=== PATIENT | female | born 1960 | race African-American/Black ===

== ENCOUNTER 2018-09-24 10:46 | Inpatient (IN) | payer OTHER ==
[2018-09-24 12:42] VITALS: BMI 42.7
--- NOTE | 2018-09-24 12:54 | HP ---
CIWA Score Nausea/Vomitin-No Nausea/No Vomiting Muscle Tremors: 1-None Visible, but [place] Anxiety: 0-No Anxiety, at Ease Agitation: 0-Normal Activity Paroxysmal Sweats: 1-Minimal Palms Moist Orientation: 1-Uncertain about Date Tacttile Disturbances: 1-Very Mild Itch/Numbness Auditory Disturbances: 0-None Visual Disturbances: 0-None Headache: 0-None Present CIWA-Ar Total Score: 4 - Admission Criteria OASAS Guidelines: Admission for Medically Managed Detox: Requires at least one of the followin. CIWA greater than 12 2. Seizures within the past 24 hours 3. Delirium tremens within the past 24 hours 4. Hallucinations within the past 24 hours 5. Acute intervention needed for co occurring medical disorder 6. Acute intervention needed for co occurring psychiatric disorder 7. Severe withdrawal that cannot be handled at a lower level of care (continued vomiting, continued diarrhea, abnormal vital signs) requiring intravenous medication and/or fluids 8. Admission ROS [facility] - HPI Allergies/Adverse Reactions: Allergies Allergy/AdvReac Type Severity Reaction Status Date / Time Sulfa (Sulfonamide Allergy Verified 09/24/18 12:16 Antibiotics) History of Present Illness: pt here requesting detox from cocaine use , reports 200-300 / day every other day denies IVDU, reports use x 30 years , denies sobriety since, this is the pt' s first tx episode. cannabis - every other day tobacco : 7-8 cigs/ day etoh : 1/2 pint - 1 pint every 2 days , reports tremors if not drinking , reports starts drinking around 10-11 am " whenever I get up " , denies w/d seizures, blackouts except one time " years ago " , denies falls while intoxicated, denies falls . PMHX : htn PSHX : r ankle frx 7 years ago w/ ORIF / hardware in place PSych : denies Meds : anti-htn Nifedipine , aspirin 81 mg Exam Limitations: No Limitations - Ebola screening Have you traveled outside of the country in the last 21 days: No Have you had contact with anyone from an Ebola affected area: No - Review of Systems Constitutional: See HPI EENT: reports: See HPI (glasses bifocal) Respiratory: reports: No Symptoms reported Cardiac: reports: No Symptoms Reported GI: reports: See HPI : reports: No Symptoms Reported Musculoskeletal: reports: No Symptoms Reported Integumentary: reports: No Symptoms Reported Neuro: reports: No Symptoms reported Endocrine: reports: No Symptoms Reported Psychiatric: reports: Orientated x3 Patient History - Smoking Cessation Smoking history: Current every day smoker Have you smoked in the past 12 months: Yes Hx Chewing Tobacco Use: No Initiated information on smoking cessation: No - Substances abused Alcohol Substance route: Oral Frequency: Daily Amount used: 1/2 FIFTH Age of first use: 18 Date of last use: 09/23/18 Cocaine Substance route: Smoking Frequency: 3-6 times per week Amount used: $200 Age of first use: 21 Date of last use: 09/23/18 Family Disease History - Family Disease History Family History: Denies Admission Physical Exam [facility] - Vital Signs Vital Signs: Vital Signs - 24 hr 09/24/18 09/24/18 12:03 12:40 Temperature 98.0 F 98.0 F Pulse Rate 95 H 95 H Respiratory 18 18 Rate Blood Pressure 162/83 162/83 - Physical General Appearance: Yes: Mild Distress HEENTM: Yes: EOMI, Hearing grossly Normal, Normocephalic, Normal Voice, Other ( upper dentures) Respiratory: Yes: Chest Non-Tender, Lungs Clear, Normal Breath Sounds Neck: Yes: No masses,lesions,Nodules, Trachea in good position Cardiology: Yes: Regular Rhythm, Regular Rate, S1, S2, Tachycardia Abdominal: Yes: Non Tender, Soft, Protuberent Genitourinary: Yes: Within Normal Limits Back: Yes: Normal Inspection Musculoskeletal: Yes: full range of Motion Extremities: Yes: Non-Tender Neurological: Yes: Fully Oriented, Alert, Motor Strength 5/5 - Diagnostic (1) Alcohol abuse Current Visit: Yes Status: Acute (2) Cocaine abuse Current Visit: Yes Status: Acute (3) Nicotine dependence Current Visit: Yes Status: Acute Qualifiers: Nicotine product type: cigarettes Breathalyzer - Breathalyzer Breathalyzer: 0 POC Urine test - Test device test lot number: [id number] Expiration date: 02/20/20 - Control test control: Yes - Result Urine Test Results: Negative - NO line present Urine Drug Screen - Test Device Lot number: [id number] Expiration date: 05/21/20 - Control Is test valid?: Yes - Results Drug screen NEGATIVE: No Urine drug screen results: THC-Marijuana, PAUL-Cocaine Inpatient Rehab Admission - Rehab Decision to Admit Inpatient rehab admission?: Yes - Initial Determination Are CD services needed?: Yes Free of communicable disease: Yes Not in need of hospitalization: Yes - Rehab Admission Criteria Previous failed treatment: No Poor recovery environment: No Comorbidities: No Lacks judgement: Yes Patient is meeting Inpatient Rehab admission criteria:: Yes
[2018-09-24] MEDS ORDERED: MENTHOL/PHENOL 1 EACH UD MM PRN (14:03)
[2018-09-24] MEDS ORDERED: MAGNESIUM CITRATE 300 ML BOTTLE PO PRN (14:03)
[2018-09-24] MEDS ORDERED: MAGNESIUM HYDROX 2400MG/30ML ORAL SUSPENSION 30 ML CUP PO PRN (14:03)
[2018-09-24] MEDS ORDERED: NICOTINE POLACRILEX 2 MG GUM BUC PRN (14:03)
[2018-09-24] MEDS ORDERED: MAG HYDROX/AL HYDROX/SIMETH 30 ML UNIT-DOSE CUP PO PRN (14:03)
[2018-09-24] MEDS ORDERED: P-EPHED 60MG/TRIPROLIDI 2.5MG TABLET PO PRN (14:03)
[2018-09-24] MEDS ORDERED: guaiFENesin 200 MG/10 ML 10 ML UNIT-DOSE CUPS PO PRN (14:03)
[2018-09-24] MEDS ORDERED: LOPERAMIDE HCL 2 MG CAPSULE PO PRN (14:03)
[2018-09-24] MEDS ORDERED: IBUPROFEN 400 MG TABLET (FP) PO PRN (14:03)
[2018-09-24] MEDS ORDERED: ALBUTEROL SO4 0.083% IH SOL 2.5 MG/3 ML VIAL.NEB. NEB PRN (14:05)
[2018-09-24 16:55] LABS: HEMOGLOBIN 13.3 GM/dL (10.7-15.3); MCH 29.4 pg (25.7-33.7); MCHC 32.5 g/dl (32.0-36.0); MEAN CELL VOLUME 90.5 fl (80-96); MEAN PLT VOLUME 10.2 fl (7.5-11.1); PLATELET COUNT 121 K/MM3 (134-434); RBC 4.53 M/mm3 (3.60-5.2); RDW 15.1 % (11.6-15.6); WHITE BLOOD COUNT 6.2 K/mm3 (4.0-10.0)
[2018-09-24 17:09] LABS: ALBUMIN 3.3 g/dl (3.4-5.0); ALK PHOS 124 U/L (45-117); ANION GAP 5 MMOL/L (8-16); BILIRUBIN,TOTAL 0.3 mg/dL (0.2-1); BLOOD UREA NITROGEN 27 mg/dL (7-18); CALCIUM 8.2 mg/dL (8.5-10.1); CHLORIDE 110 mmol/L (98-107); CO2 27 mmol/L (21-32); CREATININE 1.4 mg/dL (0.55-1.3); GLUCOSE,RANDOM 83 mg/dL (74-106); POTASSIUM 4.6 mmol/L (3.5-5.1); SGOT/AST 15 U/L (15-37); SGPT/ALT 17 U/L (13-61); SODIUM 142 mmol/L (136-145); TOT PROT 6.6 g/dl (6.4-8.2)
[2018-09-24] MEDS ORDERED: TUBERCULIN PPD 5 TU/0.1ML VIAL ID ONE (19:52)
[2018-09-24] MEDS: THIAMINE HCL 100 MG TABLET (FP) PO SCH (21:23)
[2018-09-24] MEDS: MELATONIN 5 MG TABLETS PO PRN (21:24)
[2018-09-25] MEDS: ASPIRIN 81 MG CHEWABLE TABLETS PO SCH (10:47)
[2018-09-25] MEDS: PRENATAL VITAMINS W/ FOLIC ACID TABLET (FP) PO SCH (10:47)
[2018-09-25] MEDS: NIFEdipine E.R. 90 MG TABLET (FP) PO SCH (10:48)
[2018-09-25 11:42] LABS: RPR REACTIVE 1:1 (NONREACTIVE)
--- NOTE | 2018-09-25 12:35 | CONSULT ---
[facility] Psychiatric Consult - Data Date of interview: 09/25/18 Admission source: [facility] Identifying data: Direct admission to [address] for this 58 y/o AA female, referred by [facility] for rehabilitative care to address KAILA (substance use disorder : crack/cocaine, alcohol, nicotine). Interviewed at [facility]. Patient is single, a mother of four, homeless, unemployed and supported on SSI benefts. Substance Abuse History: Confirmed by patient in this interview. Ms Uribe admits to a long standing history (since age 17) of crack abuse (capable of spending up to 300-500 dollars on crack/cocaine) and alcohol consumption (a fifth of rum or vodka every two days). This is her first attempt at rehabilitation. Additional details in current [facility] report. Smoking history: Current every day smoker. Have you smoked in the past 12 months: Yes. Hx Chewing Tobacco Use: No. Initiated information on smoking cessation: No. - Substances abused. Alcohol. Substance route: Oral. Frequency: Daily. Amount used: 1/2 FIFTH. Age of first use: 18. Date of last use: 09/23/18. Cocaine. Substance route: Smoking. Frequency: 3-6 times per week. Amount used : $200. Age of first use: 21. Date of last use: 09/23/18 Medical History: Hypertension and obesity. Psychiatric History: Patient denies. Physical/Sexual Abuse/Trauma History: No history. Additional Comment: Urine drug screen results: THC-Marijuana, PAUL-Cocaine. Noted. Mental Status Exam - Mental Status Exam Alert and Oriented to: Time, Place, Person Cognitive Function: Good Patient Appearance: Well Groomed (overweight) Mood: Hopeful Affect: Appropriate, Normal Range Patient Behavior: Appropriate, Cooperative Speech Pattern: Clear, Appropriate Voice Loudness: Normal Thought Process: Intact, Goal Oriented Thought Disorder: Not Present Hallucinations: Denies Suicidal Ideation: Denies Homicidal Ideation: Denies Insight/Judgement: Poor Sleep: Fair Appetite: Good Muscle strength/Tone: Normal Gait/Station: Normal Psychiatric Findings - Problem List (Romeo 1, 2,3) (1) Alcohol abuse Current Visit: Yes Status: Acute (2) Cocaine abuse Current Visit: Yes Status: Acute (3) Nicotine dependence Current Visit: Yes Status: Acute Qualifiers: Nicotine product type: cigarettes - Initial Treatment Plan Initial Treatment Plan: Psychoeducation. Sleep hygiene. Support. Relapse prevention (MAT strategies) : discussed with the patient. AA meetings. Groups. Observation.
[2018-09-25 14:13] LABS: TREPONEMA ANTIBODY REACTIVE (NONREACTIVE)
[2018-09-25] MEDS: THIAMINE HCL 100 MG TABLET (FP) PO SCH (21:13)
[2018-09-25] MEDS: MELATONIN 5 MG TABLETS PO PRN (21:13)
[2018-09-26] MEDS: NIFEdipine E.R. 90 MG TABLET (FP) PO SCH (10:11)
[2018-09-26] MEDS: PRENATAL VITAMINS W/ FOLIC ACID TABLET (FP) PO SCH (10:11)
[2018-09-26] MEDS: ASPIRIN 81 MG CHEWABLE TABLETS PO SCH (10:11)
[2018-09-26] MEDS: THIAMINE HCL 100 MG TABLET (FP) PO SCH (21:21)
[2018-09-26] MEDS: MELATONIN 5 MG TABLETS PO PRN (21:21)
[2018-09-27] MEDS: ASPIRIN 81 MG CHEWABLE TABLETS PO SCH (09:38)
[2018-09-27] MEDS: PRENATAL VITAMINS W/ FOLIC ACID TABLET (FP) PO SCH (09:38)
[2018-09-27] MEDS: NIFEdipine E.R. 90 MG TABLET (FP) PO SCH (09:38)
[2018-09-27 10:15] LABS: EPI CELLS 2.4 /HPF (0-5); PH,URINE 7.5 (5.0-8.0); URINE APPEARANCE CLOUDY; URINE BACTERIA 1101.5 /hpf (NEGATIVE); URINE BILIRUBIN NEGATIVE (NEGATIVE); URINE CASTS 84 /hpf (0-8); URINE COLOR YELLOW; URINE GLUCOSE (UA) NEGATIVE (NEGATIVE); URINE KETONE NEGATIVE (NEGATIVE); URINE LEUK ESTERASE 3+ (NEGATIVE); URINE NITRITE NEGATIVE (NEGATIVE); URINE PROTEIN TRACE (NEGATIVE); URINE RBC 7 /hpf (0-4); URINE UROBILINOGEN 0.2 mg/dL (0.2-1.0); URINE WBC 54 /hpf (0-5)
--- NOTE | 2018-09-27 11:59 | PN ---
[facility] Progress Note Note: PATIENT SEEN FOR C/O DYSURIA, FREQUENCY AND URGENCY UPON URINATION. DENIES FEVER AND PELVIC PAIN. Vital Signs Temperature 98.2 F 09/27/18 06:57 Pulse Rate 94 H 09/27/18 09:30 Respiratory Rate 18 09/27/18 09:30 Blood Pressure 143/78 09/27/18 09:30 O2 Sat by Pulse Oximetry (%) Laboratory Tests 09/24/18 09/24/18 09/24/18 14:30 14:30 14:30 WBC 6.2 RBC 4.53 Hgb 13.3 Hct 41.0 MCV 90.5 MCH 29.4 MCHC 32.5 RDW 15.1 Plt Count 121 L MPV 10.2 Sodium 142 Potassium 4.6 Chloride 110 H Carbon Dioxide 27 Anion Gap 5 L BUN 27 H Creatinine 1.4 H Creat Clearance w eGFR 38.62 Random Glucose 83 Calcium 8.2 L Total Bilirubin 0.3 AST 15 ALT 17 Alkaline Phosphatase 124 H Total Protein 6.6 Albumin 3.3 L Urine Color Urine Appearance Urine pH Ur Specific [place] Urine Protein Urine Glucose (UA) Urine Ketones Urine Blood Urine Nitrite Urine Bilirubin Urine Urobilinogen Ur Leukocyte Esterase Urine WBC (Auto) Urine RBC (Auto) Urine Casts (Auto) U Epithel Cells (Auto) Urine Bacteria (Auto) RPR Titer Reactive 1:1 H T.pallidum Ab (MHA) Reactive 09/27/18 07:40 WBC RBC Hgb Hct MCV MCH MCHC RDW Plt Count MPV Sodium Potassium Chloride Carbon Dioxide Anion Gap BUN Creatinine Creat Clearance w eGFR Random Glucose Calcium Total Bilirubin AST ALT Alkaline Phosphatase Total Protein Albumin Urine Color Yellow Urine Appearance Cloudy Urine pH 7.5 Ur Specific [place] 1.017 Urine Protein Trace Urine Glucose (UA) Negative Urine Ketones Negative Urine Blood 1+ H Urine Nitrite Negative Urine Bilirubin Negative Urine Urobilinogen 0.2 Ur Leukocyte Esterase 3+ H Urine WBC (Auto) 54 Urine RBC (Auto) 7 Urine Casts (Auto) 84 U Epithel Cells (Auto) 2.4 Urine Bacteria (Auto) 1101.5 RPR Titer T.pallidum Ab (MHA) PE: ALERT AND ORIENTED X 3 SKIN WARM AND DRY GI SOFT, NT,ND NEG CVAT EXT FULL ROM, AMB AD YELENA A/P: UTI HX OF TREATED SYPHILIS UA + BLOOD, [place] WILL TREAT WITH LEVAQUIN 250MG PO DAILY X 5 DAYS ENCOURAGE ORAL FLUIDS MONITOR CLINICALLY PATIENT REPORTS BEING TREATED FOR SYPHILIS IN PAST
[2018-09-27] MEDS: THIAMINE HCL 100 MG TABLET (FP) PO SCH (21:24)
[2018-09-27] MEDS: MELATONIN 5 MG TABLETS PO PRN (21:24)
[2018-09-28] MEDS: NIFEdipine E.R. 90 MG TABLET (FP) PO SCH (10:41)
[2018-09-28] MEDS: ASPIRIN 81 MG CHEWABLE TABLETS PO SCH (10:42)
[2018-09-28] MEDS: PRENATAL VITAMINS W/ FOLIC ACID TABLET (FP) PO SCH (10:42)
--- NOTE | 2018-09-28 10:52 | PN ---
[facility] Progress Note Note: CXR reviewed- no pathology noted Vital Signs (72 hours) 09/26/18 09/26/18 09/26/18 00:30 03:30 06:59 Temperature 97.9 F Pulse Rate 80 Respiratory 18 18 18 Rate Blood Pressure 165/77 09/26/18 09/27/18 09/27/18 09:30 00:30 06:57 Temperature 98.2 F Pulse Rate 102 H 90 Respiratory 18 18 20 Rate Blood Pressure 139/76 154/87 09/27/18 09/28/18 09/28/18 09:30 03:30 06:41 Temperature 97.7 F Pulse Rate 94 H 93 H Respiratory 18 20 20 Rate Blood Pressure 143/78 147/84 09/28/18 10:00 Temperature Pulse Rate 92 H Respiratory Rate Blood Pressure 145/78 CBC, BMP 09/24/18 14:30 09/24/18 14:30
[2018-09-28] MEDS: THIAMINE HCL 100 MG TABLET (FP) PO SCH (21:20)
[2018-09-28] MEDS: MELATONIN 5 MG TABLETS PO PRN (21:21)
[2018-09-29] MEDS: PRENATAL VITAMINS W/ FOLIC ACID TABLET (FP) PO SCH (10:13)
[2018-09-29] MEDS: NIFEdipine E.R. 90 MG TABLET (FP) PO SCH (10:13)
[2018-09-29] MEDS: ASPIRIN 81 MG CHEWABLE TABLETS PO SCH (10:13)
--- NOTE | 2018-09-29 14:09 | PN ---
[facility] Progress Note Note: CBC, BMP 09/24/18 14:30 09/24/18 14:30 Labs reviewed, Creatinine clearance and BUN elevated; Advised client to increase hydration.
[2018-09-29] MEDS: ACETAMINOPHEN 325 MG TABLET (FP) PO PRN (18:12)
[2018-09-29] MEDS: MELATONIN 5 MG TABLETS PO PRN (21:30)
[2018-09-29] MEDS: THIAMINE HCL 100 MG TABLET (FP) PO SCH (21:30)
[2018-09-30] MEDS: ACETAMINOPHEN 325 MG TABLET (FP) PO PRN ×3 (08:47→19:42)
[2018-09-30] MEDS: PRENATAL VITAMINS W/ FOLIC ACID TABLET (FP) PO SCH (10:31)
[2018-09-30] MEDS: ASPIRIN 81 MG CHEWABLE TABLETS PO SCH (10:31)
[2018-09-30] MEDS: NIFEdipine E.R. 90 MG TABLET (FP) PO SCH (10:31)
[2018-09-30] MEDS: MELATONIN 5 MG TABLETS PO PRN (21:50)
[2018-09-30] MEDS: THIAMINE HCL 100 MG TABLET (FP) PO SCH (21:50)
[2018-10-01] MEDS: PRENATAL VITAMINS W/ FOLIC ACID TABLET (FP) PO SCH (10:26)
[2018-10-01] MEDS: ASPIRIN 81 MG CHEWABLE TABLETS PO SCH (10:26)
[2018-10-01] MEDS: NIFEdipine E.R. 90 MG TABLET (FP) PO SCH (10:26)
[2018-10-01] MEDS: ACETAMINOPHEN 325 MG TABLET (FP) PO PRN ×2 (13:38→19:31)
[2018-10-01] MEDS: THIAMINE HCL 100 MG TABLET (FP) PO SCH (21:26)
[2018-10-01] MEDS: MELATONIN 5 MG TABLETS PO PRN (21:26)
[2018-10-02] MEDS: PRENATAL VITAMINS W/ FOLIC ACID TABLET (FP) PO SCH (10:17)
[2018-10-02] MEDS: NIFEdipine E.R. 90 MG TABLET (FP) PO SCH (10:17)
[2018-10-02] MEDS: ASPIRIN 81 MG CHEWABLE TABLETS PO SCH (10:17)
[2018-10-02] MEDS: THIAMINE HCL 100 MG TABLET (FP) PO SCH (21:41)
[2018-10-02] MEDS: MELATONIN 5 MG TABLETS PO PRN (21:41)
[2018-10-02] MEDS: ACETAMINOPHEN 325 MG TABLET (FP) PO PRN (23:43)
[2018-10-03] MEDS: NIFEdipine E.R. 90 MG TABLET (FP) PO SCH (10:18)
[2018-10-03] MEDS: PRENATAL VITAMINS W/ FOLIC ACID TABLET (FP) PO SCH (10:18)
[2018-10-03] MEDS: ASPIRIN 81 MG CHEWABLE TABLETS PO SCH (10:18)
[2018-10-03] MEDS: ACETAMINOPHEN 325 MG TABLET (FP) PO PRN (13:52)
[2018-10-03] MEDS: MELATONIN 5 MG TABLETS PO PRN (21:18)
[2018-10-03] MEDS: THIAMINE HCL 100 MG TABLET (FP) PO SCH (21:18)
[2018-10-04] MEDS: PRENATAL VITAMINS W/ FOLIC ACID TABLET (FP) PO SCH (10:22)
[2018-10-04] MEDS: ASPIRIN 81 MG CHEWABLE TABLETS PO SCH (10:22)
[2018-10-04] MEDS: NIFEdipine E.R. 90 MG TABLET (FP) PO SCH (10:23)
[2018-10-04] MEDS ORDERED: MELATONIN 5 MG TABLETS PO PRN (11:30)
[2018-10-04] MEDS ORDERED: LIDOCAINE 5% TOPICAL PATCH TP SCH (11:45)
--- NOTE | 2018-10-04 12:12 | PN ---
[facility] Progress Note Note: PATIENT PRESENTS WITH C/O RIGHT SHOULDER DISCOMFORT DUE TO OLD INJURY AND INSOMNIA. PATIENT DENIES RECENT INJURY TO RIGHT ARM/SHOULDER AND STATES SHE HAS HAD DISCOMFORT X MONTHS. PATIENT DENIES NUMBNESS AND TINGLING TO RIGHT ARM. Vital Signs Temperature 97.6 F 10/04/18 07:25 Pulse Rate 97 H 10/04/18 09:30 Respiratory Rate 18 10/04/18 09:30 Blood Pressure 117/72 10/04/18 09:30 O2 Sat by Pulse Oximetry (%) Laboratory Tests 09/24/18 09/24/18 09/24/18 14:30 14:30 14:30 WBC 6.2 RBC 4.53 Hgb 13.3 Hct 41.0 MCV 90.5 MCH 29.4 MCHC 32.5 RDW 15.1 Plt Count 121 L MPV 10.2 Sodium 142 Potassium 4.6 Chloride 110 H Carbon Dioxide 27 Anion Gap 5 L BUN 27 H Creatinine 1.4 H Creat Clearance w eGFR 38.62 Random Glucose 83 Calcium 8.2 L Total Bilirubin 0.3 AST 15 ALT 17 Alkaline Phosphatase 124 H Total Protein 6.6 Albumin 3.3 L Urine Color Urine Appearance Urine pH Ur Specific [place] Urine Protein Urine Glucose (UA) Urine Ketones Urine Blood Urine Nitrite Urine Bilirubin Urine Urobilinogen Ur Leukocyte Esterase Urine WBC (Auto) Urine RBC (Auto) Urine Casts (Auto) U Pathogenic Cast Auto U Epithel Cells (Auto) Urine Bacteria (Auto) RPR Titer Reactive 1:1 H T.pallidum Ab (MHA) Reactive 09/27/18 07:40 WBC RBC Hgb Hct MCV MCH MCHC RDW Plt Count MPV Sodium Potassium Chloride Carbon Dioxide Anion Gap BUN Creatinine Creat Clearance w eGFR Random Glucose Calcium Total Bilirubin AST ALT Alkaline Phosphatase Total Protein Albumin Urine Color Yellow Urine Appearance Cloudy Urine pH 7.5 Ur Specific [place] 1.017 Urine Protein Trace Urine Glucose (UA) Negative Urine Ketones Negative Urine Blood 1+ H Urine Nitrite Negative Urine Bilirubin Negative Urine Urobilinogen 0.2 Ur Leukocyte Esterase 3+ H Urine WBC (Auto) 54 Urine RBC (Auto) 7 Urine Casts (Auto) 84 U Pathogenic Cast Auto None seen U Epithel Cells (Auto) 2.4 Urine Bacteria (Auto) 1101.5 RPR Titer T.pallidum Ab (MHA) PE: ALERT AND ORIENTED X 3 SKIN WARM AND DRY RIGHT UE WITH FULL ROM,NO REDNESS/SWELLING AMB AD YELENA A/P: RT SHOULDER DISCOMFORT, CHRONIC INSOMNIA WILL ORDER LIDOCAINE PATCH TO RIGHT SHOULDER MELATONIN INCREASED TO 10MG HS CONTINUE TO MONITOR CLINICALLY
[2018-10-04] MEDS: LIDOCAINE 5% TOPICAL PATCH TP SCH (14:07)
[2018-10-04] MEDS: MELATONIN 5 MG TABLETS PO PRN (21:30)
[2018-10-04] MEDS: LIDOCAINE PATCH REMOVAL MC SCH (21:30)
[2018-10-04] MEDS: THIAMINE HCL 100 MG TABLET (FP) PO SCH (21:30)
[2018-10-04 23:13] LABS: PH,URINE 6.5 (5.0-8.0); URINE APPEARANCE CLEAR; URINE BILIRUBIN NEGATIVE (NEGATIVE); URINE COLOR YELLOW; URINE GLUCOSE (UA) NEGATIVE (NEGATIVE); URINE KETONE NEGATIVE (NEGATIVE); URINE LEUK ESTERASE NEGATIVE (NEGATIVE); URINE NITRITE NEGATIVE (NEGATIVE); URINE PROTEIN NEGATIVE (NEGATIVE); URINE UROBILINOGEN 0.2 mg/dL (0.2-1.0)
--- NOTE | 2018-10-05 09:21 | PN ---
[facility] Progress Note Note: Reviewed U/A-no abnormalities noted.
[2018-10-05] MEDS: NIFEdipine E.R. 90 MG TABLET (FP) PO SCH (10:14)
[2018-10-05] MEDS: ASPIRIN 81 MG CHEWABLE TABLETS PO SCH (10:14)
[2018-10-05] MEDS: LIDOCAINE 5% TOPICAL PATCH TP SCH (10:14)
[2018-10-05] MEDS: PRENATAL VITAMINS W/ FOLIC ACID TABLET (FP) PO SCH (10:14)
[2018-10-05] MEDS: THIAMINE HCL 100 MG TABLET (FP) PO SCH (21:35)
[2018-10-05] MEDS: LIDOCAINE PATCH REMOVAL MC SCH (21:35)
[2018-10-05] MEDS: MELATONIN 5 MG TABLETS PO PRN (21:36)
[2018-10-06] MEDS ORDERED: ALBUTEROL SO4 0.083% IH SOL 2.5 MG/3 ML VIAL.NEB. NEB PRN (06:52)
[2018-10-06] MEDS: LIDOCAINE 5% TOPICAL PATCH TP SCH (10:02)
[2018-10-06] MEDS: PRENATAL VITAMINS W/ FOLIC ACID TABLET (FP) PO SCH (10:02)
[2018-10-06] MEDS: ASPIRIN 81 MG CHEWABLE TABLETS PO SCH (10:02)
[2018-10-06] MEDS: NIFEdipine E.R. 90 MG TABLET (FP) PO SCH (10:02)
[2018-10-06] MEDS: LIDOCAINE PATCH REMOVAL MC SCH (21:30)
[2018-10-06] MEDS: THIAMINE HCL 100 MG TABLET (FP) PO SCH (21:30)
[2018-10-06] MEDS: MELATONIN 5 MG TABLETS PO PRN (21:31)
[2018-10-07] MEDS: NIFEdipine E.R. 90 MG TABLET (FP) PO SCH (09:42)
[2018-10-07] MEDS: PRENATAL VITAMINS W/ FOLIC ACID TABLET (FP) PO SCH (09:42)
[2018-10-07] MEDS: ASPIRIN 81 MG CHEWABLE TABLETS PO SCH (09:42)
[2018-10-07] MEDS: LIDOCAINE 5% TOPICAL PATCH TP SCH (09:43)
--- NOTE | 2018-10-07 10:19 | PN ---
[facility] Progress Note (SOAP) Subjective: Reporting that she is urinating every hour during the night. Drinks water and apple juice during the night. States that she has been told that she was pre- diabetic. Objective: Obese; abnormal BUN and creatinine clearance. Albumin is low. Vital Signs Period Temp Pulse Resp BP Sys/Torres Pulse Ox Last 24 Hr 97.6 F 79 18-20 149/94 10/07/18 10:14 CBC, BMP 09/24/18 14:30 09/24/18 14:30 10/07/18 10:19 10/07/18 10:20 Assessment: 10/07/18 10:15 Nocturia Unlikely that frequent urination is related to a UTI, Labs indicate renal insufficiency-random glucose is 83, although this does not rule out prediabetes. Albumin is slightly low. 10/07/18 10:21 10/07/18 10:21 Plan: Advised client to decrease fluid intake after 6 or 7pm, stop drinking water and apple juice through the night. Follow up with PCP after discharge to evaluate for renal insufficiency. Will order U/A to rule out UTI.
--- NOTE | 2018-10-07 14:06 | PN ---
[facility] Progress Note Note: patient c/o acid reflux, states she has started to drink a lot of orange juice and the pain began. PE: obese, abd soft, non-tender, non-distended, +BS. DX: dyspepsia Plan: started protonix, advised patient to avoid foods that aggravated her diagestive system, increase fluids.
[2018-10-07] MEDS: LIDOCAINE PATCH REMOVAL MC SCH (21:28)
[2018-10-07] MEDS: MELATONIN 5 MG TABLETS PO PRN (21:28)
[2018-10-07] MEDS: THIAMINE HCL 100 MG TABLET (FP) PO SCH (21:28)
[2018-10-07] MEDS: PANTOPRAZOLE 40 MG TABLET (FP) PO SCH (22:14)
[2018-10-08] MEDS: NIFEdipine E.R. 90 MG TABLET (FP) PO SCH (10:13)
[2018-10-08] MEDS: LIDOCAINE 5% TOPICAL PATCH TP SCH (10:13)
[2018-10-08] MEDS: PRENATAL VITAMINS W/ FOLIC ACID TABLET (FP) PO SCH (10:13)
[2018-10-08] MEDS: ASPIRIN 81 MG CHEWABLE TABLETS PO SCH (10:13)
[2018-10-08] MEDS: PANTOPRAZOLE 40 MG TABLET (FP) PO SCH (10:13)
[2018-10-08] MEDS: THIAMINE HCL 100 MG TABLET (FP) PO SCH (21:17)
[2018-10-08] MEDS: MELATONIN 5 MG TABLETS PO PRN (21:18)
[2018-10-08] MEDS: LIDOCAINE PATCH REMOVAL MC SCH (21:18)
[2018-10-09] MEDS: NIFEdipine E.R. 90 MG TABLET (FP) PO SCH (09:13)
[2018-10-09] MEDS: LIDOCAINE 5% TOPICAL PATCH TP SCH (09:13)
[2018-10-09] MEDS: PANTOPRAZOLE 40 MG TABLET (FP) PO SCH (09:14)
[2018-10-09] MEDS: ASPIRIN 81 MG CHEWABLE TABLETS PO SCH (09:14)
[2018-10-09] MEDS: PRENATAL VITAMINS W/ FOLIC ACID TABLET (FP) PO SCH (09:14)
[2018-10-09] MEDS: LIDOCAINE PATCH REMOVAL MC SCH (21:08)
[2018-10-09] MEDS: THIAMINE HCL 100 MG TABLET (FP) PO SCH (21:08)
[2018-10-09] MEDS: MELATONIN 5 MG TABLETS PO PRN (21:08)
[2018-10-10] MEDS: PRENATAL VITAMINS W/ FOLIC ACID TABLET (FP) PO SCH (09:52)
[2018-10-10] MEDS: LIDOCAINE 5% TOPICAL PATCH TP SCH (09:52)
[2018-10-10] MEDS: ASPIRIN 81 MG CHEWABLE TABLETS PO SCH (09:52)
[2018-10-10] MEDS: NIFEdipine E.R. 90 MG TABLET (FP) PO SCH (09:53)
[2018-10-10] MEDS: PANTOPRAZOLE 40 MG TABLET (FP) PO SCH (09:53)
[2018-10-10] MEDS: THIAMINE HCL 100 MG TABLET (FP) PO SCH (21:23)
[2018-10-10] MEDS: LIDOCAINE PATCH REMOVAL MC SCH (21:23)
[2018-10-11 06:57] VITALS: BP 150/70; PULSE 81; TEMP 97.2
[2018-10-11] MEDS: ASPIRIN 81 MG CHEWABLE TABLETS PO SCH (09:03)
[2018-10-11] MEDS: PRENATAL VITAMINS W/ FOLIC ACID TABLET (FP) PO SCH (09:03)
[2018-10-11] MEDS: PANTOPRAZOLE 40 MG TABLET (FP) PO SCH (09:04)
[2018-10-11] MEDS: NIFEdipine E.R. 90 MG TABLET (FP) PO SCH (09:04)
[2018-10-11] MEDS: LIDOCAINE 5% TOPICAL PATCH TP SCH (09:04)
--- NOTE | 2018-10-11 10:34 | PN ---
[facility] Progress Note Note: PT COMPLETED REHAB AND DISCHARGED TODAY. PT MET WITH HER COUNSELOR AND HAS BEEN REFERRED TO [facility] FOR AFTERCARE. PT REPORTS SHE HAS PCP, DR. MARTINEZ AT [facility] [place], [place]. ALERT O X 3. DENIES S/H/I. 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 Home Medications Medication Instructions Recorded Aspirin [Children's Aspirin] 81 mg PO DAILY #30 tab.chew 10/11/18 Nifedipine ER [Procardia XL -] 90 mg PO DAILY #30 tab.er.24 10/11/18 Vital Signs - 24 hr 10/11/18 10/11/18 10/11/18 00:30 03:30 06:56 Temperature 97.2 F L Pulse Rate 81 Respiratory 18 18 18 Rate Blood Pressure 150/70 Laboratory Tests 09/24/18 09/24/18 09/24/18 14:30 14:30 14:30 WBC 6.2 RBC 4.53 Hgb 13.3 Hct 41.0 MCV 90.5 MCH 29.4 MCHC 32.5 RDW 15.1 Plt Count 121 L MPV 10.2 Sodium 142 Potassium 4.6 Chloride 110 H Carbon Dioxide 27 Anion Gap 5 L BUN 27 H Creatinine 1.4 H Creat Clearance w eGFR 38.62 Random Glucose 83 Calcium 8.2 L Total Bilirubin 0.3 AST 15 ALT 17 Alkaline Phosphatase 124 H Total Protein 6.6 Albumin 3.3 L Urine Color Urine Appearance Urine pH Ur Specific [place] Urine Protein Urine Glucose (UA) Urine Ketones Urine Blood Urine Nitrite Urine Bilirubin Urine Urobilinogen Ur Leukocyte Esterase Urine WBC (Auto) Urine RBC (Auto) Urine Casts (Auto) U Pathogenic Cast Auto U Epithel Cells (Auto) Urine Bacteria (Auto) RPR Titer Reactive 1:1 H T.pallidum Ab (MHA) Reactive 09/27/18 10/04/18 07:40 14:48 WBC RBC Hgb Hct MCV MCH MCHC RDW Plt Count MPV Sodium Potassium Chloride Carbon Dioxide Anion Gap BUN Creatinine Creat Clearance w eGFR Random Glucose Calcium Total Bilirubin AST ALT Alkaline Phosphatase Total Protein Albumin Urine Color Yellow Yellow Urine Appearance Cloudy Clear Urine pH 7.5 6.5 Ur Specific [place] 1.017 1.018 Urine Protein Trace Negative Urine Glucose (UA) Negative Negative Urine Ketones Negative Negative Urine Blood 1+ H Negative Urine Nitrite Negative Negative Urine Bilirubin Negative Negative Urine Urobilinogen 0.2 0.2 Ur Leukocyte Esterase 3+ H Negative Urine WBC (Auto) 54 Urine RBC (Auto) 7 Urine Casts (Auto) 84 U Pathogenic Cast Auto None seen U Epithel Cells (Auto) 2.4 Urine Bacteria (Auto) 1101.5 RPR Titer T.pallidum Ab (MHA) NAD MEDICALLY STABLE PLAN:D/C PT TODAY. FOLLOW UP WITH CD RECOMMENDATION FOLLOW UP WITH PMD FOR MEDICAL MANAGEMENT.
== END 2018-10-11 11:20 | disposition home or self-care (01) | DRG 772 ==
LOC: YASAS 10:46 → Y3W 14:48
PROVIDERS: ADMIT Neuromusculoskeletal Medicine & OMM; ATTEND Neuromusculoskeletal Medicine & OMM
PROC: HZ42ZZZ Group Counseling for Substance Abuse Treatment, Cognitive-Behavioral (ICD-10-PCS; principal; 2018-09-24)
DX: F10.20 Alcohol dependence, uncomplicated (principal); F14.20 Cocaine dependence, uncomplicated; F17.210 Nicotine dependence, cigarettes, uncomplicated; N39.0 Urinary tract infection, site not specified; R10.13 Epigastric pain; G47.00 Insomnia, unspecified; R35.0 Frequency of micturition; M25.511 Pain in right shoulder; R35.1 Nocturia; Z88.2 Allergy status to sulfonamides
CPT/HCPCS: 36415; 71046-TC-FY; 80053; 81003; 85027; 86593; 86780